=== PATIENT | female | born 1985 | race Caucasian/White ===

== ENCOUNTER 2022-09-21 21:12 | Emergency (ER) | payer MEDICAID, SELFPAY ==
[2022-09-21 21:13] VITALS: BP 132/65; PULSE 86; RESP 18; TEMP 36.6; O2SAT 98; BMI 26.4
--- NOTE | 2022-09-21 22:07 | US_ITS ---
INDICATION: BILATERAL SWELLING AND REDNESS EXAMINATION: Ultrasound US Venous Duplex LE Bilat Complete TECHNIQUE: Greene scale, pulse wave, and color flow Doppler imaging was performed of the lower extremity venous system. The bilateral greater saphenous, common femoral, femoral, and popliteal veins were interrogated. COMPARISON: FINDINGS: Visualized veins from common femoral at the groin through the popliteal vein demonstrate appropriate flow characteristics, compressibility, and augmentation. No intraluminal thrombus identified. US/Venous Duplex Imag/Sidney Extrem IMPRESSION: Negative for DVT. Electronically Signed: Orly Miles MD at 23:04 EDT ,
--- NOTE | 2022-09-21 22:57 | EDS_ITS ---
HPI History of Present Illness Chief Complaint: Lower Extremity Injury Detail of Chief Complaint: Redness to the bilateral lower extremities Informant: patient Onset/Context/Timing Onset: Yesterday Narrative Narrative: Patient presents with an area of erythema on the medial aspect of the lower legs bilaterally. She states she first noted the area yesterday and thought it was a little red and may be bruised. Today the erythema is larger. She states she does have some aching in her legs. No known wounds. She has not recently been out in the ro. PFSH PFSH Medical History no medical history no medical history Home Medications omeprazole 40 mg capsule,delayed release 40 mg PO DAILY 02/23/17 [History Last Taken 02/22/17] ondansetron 4 mg disintegrating tablet 4 mg PO Q8H PRN PRN Nausea #10 tabs 02/23/17 [Rx Last Taken Unknown] oxycodone-acetaminophen 5 mg-325 mg tablet 1 - 2 tab PO Q4H PRN PRN Pain #10 tabs 02/23/17 [Rx Last Taken Unknown] cephalexin 500 mg capsule 500 mg PO Q6 #40 CAPSULES 09/21/22 [Rx Last Taken Unknown] sulfamethoxazole 800 mg-trimethoprim 160 mg tablet (Bactrim DS) 1 tab PO BID #20 tabs 09/21/22 [Rx Last Taken Unknown] Allergy/AdvReac Type Severity Reaction Status Date / Time acetaminophen [From Vicodin] Allergy Vomiting Verified 09/21/22 21:14 hydrocodone [From Vicodin] Allergy Vomiting Verified 09/21/22 21:14 Social History Smoking Status: Current every day smoker tobacco type: cigarettes ROS ROS ED Constitutional Constitutional ED: Denies chills or fever(s) Eyes Eyes: Denies discharge from eye(s) ENT ENT ED: Denies discharge from eye(s), rhinorrhea or sore throat Cardiovascular Cardiovascular: Denies chest pain Respiratory/Chest Respiratory/Chest: Denies cough or dyspnea Gastrointestinal Gastrointestinal: Denies abdominal pain, nausea or vomiting Genitourinary Genitourinary ED: Denies dysuria Musculoskeletal Musculoskeletal: Reports extremity pain and myalgias; Denies back pain Integumentary Denies Abrasions or rash Neurologic Neurologic: Denies headache(s), paresthesias or weakness Psychiatric Psychiatric: Denies anxiety or depression Allergic/Immunologic Allergic/Immunologic ED: Denies lip swelling or urticaria EXAM Physical Exam Const Vital Signs: 09/21/22 21:13 Temperature 97.9 F Temperature Source Temporal Pulse Rate 86 Respiratory Rate 18 Blood Pressure 132/65 H Blood Pressure Mean 87 Pulse Ox 98 Oxygen Delivery Method Room Air Positive well nourished and well developed General Appearance ED: well developed HEENT Reports moist mucous membranes Eyes PERRL and EOMs intact bilaterally Neck no lymphadenopathy Chest Wall inspection of chest normal and palpation of chest normal Resp normal respiratory effort and clear to auscultation bilaterally Cardio regular rate and regular rhythm GI normal to inspection, nondistended, normoactive bowel sounds Extremity Extremity Narrative: There is a round patch of erythema on the lower inner surface of the lower legs bilaterally. On the left leg the area measures 4 x 6 cm. On the right leg it measures 9 x 7 cm. There do not appear to be any open wounds or bite abreu. No significant edema. Neuro oriented x3 and no sensory deficits noted Motor Exam: strength 5/5 throughout Psych mental status grossly normal MDM MDM MDM Narrative Medical decision making narrative: Venous ultrasound of the bilateral lower extremities is obtained to rule out DVT. This returns negative. Area of erythema is outlined with a surgical marker. Patient be treated with Bactrim and Keflex for cellulitis. Return instructions are given. Radiography Diagnostic Testing: Clinical Impression(s) from Imaging Studies Venous Duplex 09/21/22 22:07 IMPRESSION: Negative for DVT. Electronically Signed: Orly Miles MD at 23:04 EDT Reading Location ID and State: [address] [place] [address] Tel , Service support , Discharge Plan Triage Chief Complaint: Lower Extremity Injury Other Complaint: Cellulitis ED Provider: Apolonia Nugent Dx/Rx/DC Orders Clinical Impression: Cellulitis Instructions: ED Cellulitis Prescriptions: New sulfamethoxazole-trimethoprim [Bactrim DS] 800-160 mg tablet 1 tab PO BID Qty: 20 0RF cephalexin 500 mg capsule 500 mg PO Q6 Qty: 40 0RF No Action omeprazole 40 MG capsule,delayed release(DR/EC) 40 mg PO DAILY oxycodone-acetaminophen 1 TABLET tablet 1 - 2 tab PO Q4H PRN PRN (Reason: Pain) Qty: 10 0RF ondansetron 4 MG tablet 4 mg PO Q8H PRN PRN (Reason: Nausea) Qty: 10 0RF Primary Care Provider: Gabrielle Sutton NP Referrals: Gabrielle Sutton NP, HOTEL DIRECTOR-C [Primary Care Provider] - 5-7 Days Disposition Disposition: Home, Self Care Discharge Date/Time: 09/21/22 23:07
[2022-09-21] MEDS: Smz/Tmp Ds Tablet 1 TABLET PO (23:06)
[2022-09-21] MEDS: Cephalexin 250 MG Capsule 500 MG PO (23:06)
== END 2022-09-21 23:07 | disposition home or self-care (01) ==
PROVIDERS: Emergency Provider Emergency Medicine; PCP Nurse Practitioner Family; Visit Provider Emergency Medicine
DX: L03.115 Cellulitis of right lower limb (principal); L03.116 Cellulitis of left lower limb; F17.210 Nicotine dependence, cigarettes, uncomplicated
CPT/HCPCS: 93970; 99283